=== PATIENT | male | born 1965 | race Hispanic/Latino ===

== ENCOUNTER 2018-08-29 12:55 | Emergency (ER) | payer BC ==
[2018-08-29] MEDS ORDERED: ASPIRIN 325 MG TABLET ONE (13:29)
[2018-08-29 13:30] LABS: BASOPHILS % (AUTO) 1.3 % (0.0-5.0); HEMATOCRIT 49.8 % (42-54); MEAN CORPUSCULAR HGB CONC 33.8 g/dL (32.0-36.0); MEAN CORPUSCULAR VOLUME 88.6 fL (79-99); MONOCYTES % (AUTO) 7.2 % (3.0-13.0); NEUTROPHILS % (AUTO) 59.5 % (40.0-77.0); NUCLEATED RED BLOOD CELLS 0.1 % (0.0-0.19); PLATELET COUNT (AUTO) 259 K/uL (130-400); RED BLOOD CELL COUNT(AUTO) 5.62 MIL/uL (4.50-6.20); RED CELL DISTRIBUTION WIDTH 14.2 % (11.0-15.5); WHITE BLOOD COUNT (AUTO) 6.8 K/uL (4.8-10.8)
[2018-08-29 13:35] LABS: CREATININE 1.1 mg/dL (0.5-1.5); POTASSIUM 3.5 mmol/L (3.5-5.1)
[2018-08-29 13:47] LABS: ALBUMIN 4.2 g/dL (3.5-5.0); TOTAL PROTEIN, SERUM 7.3 g/dL (6.0-8.3)
[2018-08-29 14:09] LABS: INR 0.94 (0.85-1.15); PARTIAL THROMBOPLASTIN TIME 28.4 SEC (26.3-35.5); PROTHROMBIN TIME 9.9 SEC (9.6-11.6)
[2018-08-29] MEDS ORDERED: METOPROLOL TARTRATE 1 MG/ML 5ML VIAL IV ONE (15:09)
== END 2018-08-29 16:04 | disposition home or self-care (01) ==
LOC: EDH 12:55
DX: R07.89 Other chest pain (principal); I10 Essential (primary) hypertension; E07.9 Disorder of thyroid, unspecified
CPT/HCPCS: 36415; 71045; 80053; 82550; 83874; 84484 ×2; 85025; 85610; 85730; 93005 ×2; 94761; 96374; 99285; J3490

== ENCOUNTER 2024-11-09 11:38 | Emergency (ER) | payer BC, OTHER ==
[~2024-11-09] VITALS: Ht 175.3 cm; Wt 78.9 kg
[2024-11-09 11:41] VITALS: BP 150/93; PULSE 64; RESP 18; TEMP 97.9
--- NOTE | 2024-11-09 11:53 | ERN ---
ED Note History of Present Illness Stated Complaint: DOG BITE, RIGHT FOREARM Chief Complaint: Animal Bite Time Seen by MD: 11:45 Dictation: PATIENT IS A 58-YEAR-OLD MALE [facility] WITH PUNCTURE WOUND AND DOG BITE TO THE RIGHT LATERAL FOREARM. 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 THE DOG BELONGS TO THE OWNERS AND HAS ALREADY BEEN COLLECTED AND CAN BE QUARANTINE. VACCINATION STATUS IS UNKNOWN. PER THE PATIENT, HIS TETANUS SHOT WAS MADE UP TO DATE LAST NIGHT NO REPAIR WAS DONE TO THE PUNCTURE WOUNDS. HE WAS PRESCRIBED AUGMENTIN/BACTROBAN AND IBUPROFEN FOR PAIN. POLICE REPORT HAS BEEN MADE BY THE [facility] LAST NIGHT. STATES HE WAS SENT HERE THIS MORNING FOR POSSIBLE RABIES VACCINATION. I ADVISED HIM SENT THE DOG IN BEEN COLLECTED AND THE OWNERS ARE KNOWN, RABIES IS NOT INDICATED AT THE TIME IT IN THE RISK IS LOW. HE STATES THE DOG WAS NOT ACTING IN AN UNUSUAL MANNER OR FOAMING AT THE MOUTH. PATIENT HAS NOT STARTED AUGMENTIN Allergies: Coded Allergies: No Known Drug Allergies (Unverified Allergy, Unknown, 11/09/24) Past Medical History Past Medical History: Hypertension Surgical History: None RN Note Reviewed/Agreed w/PFSH: Yes Review of System Dictation CONSTITUTIONAL: NEGATIVE EXCEPT FOR HPI HEAD/FACE: NEGATIVE EXCEPT FOR HPI EENT: NEGATIVE EXCEPT FOR HPI RESPIRATORY: NEGATIVE EXCEPT FOR HPI GASTROINTESTINAL/ABDOMINAL: NEGATIVE EXCEPT FOR HPI GENITOURINARY: NEGATIVE EXCEPT FOR HPI MUSCULOSKELETAL: NEGATIVE EXCEPT FOR HPI INTEGUMENTARY: NEGATIVE EXCEPT FOR HPI DOG BITE WITH PUNCTURE WOUNDS RIGHT LATERAL FOREARM NEUROLOGICAL/PSYCH: NEGATIVE EXCEPT FOR HPI HEMATOLOGIC/LYMPHATIC: NEGATIVE EXCEPT FOR HPI ALL SYSTEMS NEGATIVE, EXCEPT NOTED ABOVE. 13 POINT REVIEW OF SYSTEMS ASSESSED AND ALL NEGATIVE EXCEPT FOR ABOVE. Initial Vital Sign VS Vital Signs Date Time Temp Pulse Resp B/P (MAP) Pulse Ox O2 Delivery O2 Flow Rate FiO2 11/09/24 11:41 97.9 64 18 150/93 97 Room Air Physical Exam Dictation VITAL SIGNS REVIEWED GENERAL APPEARANCE: ALERT, ORIENTED X 3, NO ACUTE DISTRESS, WELL DEVELOPED, NOURISHED. HEAD AND FACE: NON-TRAUMATIC. EYES: PERRL, PINK CONJUNCTIVAS, EYELID NO TRAUMA, ANTERIOR CHAMBER WITH ARCUS SENILIS. EARS: PINNAS INTACT AND NO SIGNS OF TRAUMA OR ERYTHEMA EAR CANALS CLEAR AND NO DISCHARGE TM NO ERYTHEMA NOSE: NO DISCHARGE, NO BLEEDING. OROPHARYNX: MOUTH NORMAL, TONGUE PINK, PHARYNX CLEAR,NO ERYTHEMA, TONSILS NO EXUDATES, NO ABSCESSES NOTED, MUCOUS MEMBRANE MOIST NECK: SUPPLE, NON-TENDER, NO THYROMEGALY, NO MASSES, NO JVD, NO BRUITS BREAST:DEFERRED CHEST:NO TENDERNESS, NO CREPITUS, NO PARADOXICAL MOVEMENT, NO RETRACTIONS LUNGS:CLEAR, WELL-VENTILATED, SYMMETRIC, NO RALES, NO WHEEZING, NO RHONCHI, NO STRIDOR, GOOD BREATH SOUNDS BILATERALLY HEART: REGULAR RATE, REGULAR RHYTHM, NO MURMUR, NO GALLOPS VASCULAR: NO PERIPHERAL EDEMA, ABDOMEN: SOFT, POSITIVE BOWEL SOUNDS, NONDISTENDED, NO GUARDING, NONTENDER, NO REBOUND, NO MASSES NO HEPATOMEGALY, NO SPLENOMEGALY, NO BRANTLEY'S SIGN, NO HERNIAS. RECTAL: DEFERRED GENITAL: DEFERRED NEUROLOGICAL: NORMAL SPEECH, MOTOR FUNCTION INTACT, SENSORY FUNCTION INTACT MUSCULOSKELETAL: NECK NONTENDER, FULL RANGE OF MOTION, BACK NONTENDER, FULL RANGE OF MOTION, EXTREMITIES: NONTENDER, FULL RANGE OF MOTION SKIN: COLOR PINK, RIGHT LATERAL FOREARM FULL RANGE OF MOTION AND FOR PUNCTURE WOUNDS NOTED. NO LACERATION NO BLEEDING. NO ERYTHEMA LYMPHATIC: DEFERRED ED Course ED Course Orders Procedure Category Date Status Time Neomy PHA 11/09/24 Transmitted Sulf/Bacitra/Polymyxin 12:00 Amox/Clav 875/125mg PHA 11/09/24 Transmitted Tab (Augmentin 875-1 12:00 Vital Signs Date Time Temp Pulse Resp B/P (MAP) Pulse Ox O2 Delivery O2 Flow Rate FiO2 11/09/24 11:41 97.9 64 18 150/93 97 Room Air ELEVEN 50 PATIENT WAS MADE AWARE THAT RISK FOR RABIES IS LOW, THE DOG HAS ALREADY BEEN PICKED UP AND CAN BE QUARANTINE. POLICE REPORT WAS MADE LAST NIGHT BY THE [facility] Medical Decision Making MDM MEDICAL DISCHARGE MAKING BASED ON EMPIRIC TREATMENT FOR A DOG BITE WITH AUGMENTIN TETANUS HAS BEEN UPDATED BY THE [facility] LAST NIGHT POLICE REPORT WAS MADE BY THE SAME CLINIC AND DOG HAS BEEN PICKED UP NO FURTHER INTERVENTION REQUIRED PATIENT WILL BE REFERRED BACK TO [facility] AND NO NEED FOR VACCINE FOR RABIES DX & DISP Disposition: Discharge Departure Impression: Primary Impression: Dog bite of right forearm without complication Condition: Stable Additional Instructions: FOLLOW-UP WITH PRIMARY CARE PROVIDER IN 1 TO 2 DAYS. TAKE MEDICATIONS DIRECTED HERE IN THE EMERGENCY ROOM. OKAY TO CONTINUE HOME MEDICATIONS UNLESS OTHERWISE DISCUSSED DURING YOUR VISIT IN THE EMERGENCY ROOM TODAY. RETURN TO YOUR NEAREST EMERGENCY ROOM IF SYMPTOMS WORSEN OR IF THERE IS NO IMPROVEMENT. CALL 911 IF YOU NEED IMMEDIATE ASSISTANCE. TAKE TYLENOL OR MOTRIN OVER-THE-C OUNTER NEEDED AND IF NO CONTRAINDICATIONS ARE PRESENT. INCREASE ORAL HYDRATION. A WOUND CULTURE OR URINE CULTURE WAS ORDERED HERE IN THE EMERGENCY ROOM DEPARTMENT PLEASE FOLLOW-UP WITH PRIMARY CARE PROVIDER AND ADVISE THEM TO GET REPEAT PORTS FROM OUR FACILITY. IF YOU HAD ANY SHERMAN WRAP/SPLINTS THAT WERE APPLIED HERE, PLEASE DO NOT REMOVE THEM UNTIL YOU SEE YOUR PRIMARY CARE OR SPECIALTY. FOLLOW BACK UP WITH [facility] NEEDED. NO INDICATION AT THIS TIME FOR RABIES VACCINE AND COMPLETE THE POLICE REPORT FROM THE [facility] LAST NIGHT BY THE DOG. Referrals: SELF,REFERRAL (PCP) Time of Disposition: 11:52 I have reviewed the case, and I agree with, Diagnosis and Plan SAMIR CHAO NP Nov 09, 2024 11:53
[2024-11-09] MEDS: NEOMY SULF/BACITRA/POLYMYXIN B 1 EACH PACKET TP ONE (12:12)
[2024-11-09] MEDS: AMOX/CLAV 875/125MG TAB PO ONE (12:12)
--- NOTE | 2024-11-09 12:34 | NUR ---
REPORT WAS MADE TIME OF INCIDENT [id number]
== END 2024-11-09 12:34 | disposition home or self-care (01) ==
LOC: EDH 11:38
DX: S51.851A Open bite of right forearm, initial encounter (principal); I10 Essential (primary) hypertension; W54.0XXA Bitten by dog, initial encounter; Y93.89 Activity, other specified; Y92.89 Other specified places as the place of occurrence of the external cause; Y99.8 Other external cause status
CPT/HCPCS: 99283